=== PATIENT | male | born 1940 | race Caucasian/White ===

== ENCOUNTER 2016-03-17 22:32 | Outpatient (CLI) | payer MEDICARE, BC | END 2016-03-17 22:33 | disposition home or self-care (01) | DX: G47.33 Obstructive sleep apnea (adult) (pediatric) (principal); I48.1 Persistent atrial fibrillation; Z68.33 Body mass index [BMI] 33.0-33.9, adult ==

== ENCOUNTER 2016-04-05 14:07 | Outpatient (CLI) | payer MEDICARE, BC | END 2016-04-05 14:08 | disposition home or self-care (01) | DX: G47.33 Obstructive sleep apnea (adult) (pediatric) (principal) | CPT/HCPCS: 99213; G0463 ==

== ENCOUNTER 2016-05-16 15:09 | Outpatient (CLI) | payer MEDICARE, BC | END 2016-05-16 15:10 | disposition home or self-care (01) | DX: G47.33 Obstructive sleep apnea (adult) (pediatric) (principal) | CPT/HCPCS: 99213; G0463 ==

== ENCOUNTER 2016-05-30 19:40 | Outpatient (CLI) | payer MEDICARE, BC | END 2016-05-30 19:41 | disposition home or self-care (01) | DX: G47.33 Obstructive sleep apnea (adult) (pediatric) (principal); I48.91 Unspecified atrial fibrillation; Z68.33 Body mass index [BMI] 33.0-33.9, adult ==

== ENCOUNTER 2016-06-13 11:11 | Outpatient (CLI) | payer MEDICARE, BC | END 2016-06-13 11:12 | disposition home or self-care (01) | DX: E11.29 Type 2 diabetes mellitus with other diabetic kidney complication (principal); N18.9 Chronic kidney disease, unspecified ==

== ENCOUNTER 2016-06-20 14:11 | Outpatient (CLI) | payer MEDICARE, BC | END 2016-06-20 14:12 | disposition home or self-care (01) | DX: G47.33 Obstructive sleep apnea (adult) (pediatric) (principal); I48.91 Unspecified atrial fibrillation | CPT/HCPCS: 99214; G0463 ==

== ENCOUNTER 2016-07-20 14:37 | Outpatient (CLI) | payer MEDICARE, BC | END 2016-07-20 14:38 | disposition home or self-care (01) | DX: G47.33 Obstructive sleep apnea (adult) (pediatric) (principal) | CPT/HCPCS: 99214; G0463 ==

== ENCOUNTER 2016-09-19 10:14 | Outpatient (CLI) | payer MEDICARE, BC | END 2016-09-19 10:15 | disposition home or self-care (01) | DX: G47.33 Obstructive sleep apnea (adult) (pediatric) (principal) | CPT/HCPCS: 99214; G0463 ==

== ENCOUNTER 2016-10-24 10:26 | Outpatient (CLI) | payer MEDICARE, BC ==
[2016-10-24 18:54] LABS: ALBUMIN/GLOBULIN RATIO 1.3 (1.0-2.2); BILIRUBIN,TOTAL 0.4 mg/dL (0.2-1.0); CALCIUM 9.2 mg/dL (8.5-10.3); CREATININE 1.3 mg/dL (0.6-1.2); POTASSIUM 4.3 mmol/L (3.5-5.0); TOTAL PROTEIN 7.2 g/dL (6.7-8.2)
[2016-10-24 18:57] LABS: HEMOGLOBIN A1C 0.66 g/dL
== END 2016-10-24 10:27 | disposition home or self-care (01) ==
LOC: LAB.F 10:26
PROVIDERS: ATTEND Internal Medicine
DX: E11.29 Type 2 diabetes mellitus with other diabetic kidney complication (principal); E11.40 Type 2 diabetes mellitus with diabetic neuropathy, unspecified
CPT/HCPCS: 36415; 80053; 83036

== ENCOUNTER 2017-06-19 12:53 | Outpatient (CLI) | payer MEDICARE, BC ==
--- NOTE | 2017-06-19 13:47 | Ultrasound Report ---
AORTA SCREEN: 06/19/2017 CLINICAL INDICATION: Screening. TECHNIQUE: Real-time sonographic imaging was performed by the lodging house keeper through the aorta. Multiple sales account representative static images were saved for review. FINDINGS: The abdominal aorta is normal in caliber, measuring 2.8 cm proximally , 2.5 cm in the mid portion, and 1.8 cm distally. The iliacs are normal in caliber. No free fluid is present. IMPRESSION: NO EVIDENCE OF ABDOMINAL AORTIC ANEURYSM. TD: 06/19/2017 13:46 MTDD
== END 2017-06-19 12:54 | disposition home or self-care (01) ==
LOC: DI 12:53
PROVIDERS: ATTEND Internal Medicine
DX: Z13.6 Encounter for screening for cardiovascular disorders (principal)
CPT/HCPCS: 76706

== ENCOUNTER 2017-08-08 13:52 | Outpatient (CLI) | payer MEDICARE, BC | END 2017-08-08 13:53 | disposition home or self-care (01) | LOC: SC 13:52 | PROVIDERS: ATTEND Nurse Practitioner Family | DX: I10 Essential (primary) hypertension (principal); E11.9 Type 2 diabetes mellitus without complications | CPT/HCPCS: 99214; G0463; 99212 ==

== ENCOUNTER 2017-09-14 21:36 | Emergency (ER) | payer MEDICARE, BC ==
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
[2017-09-14] MEDS ORDERED: HYDROcod/ACETAM 5/325 MG TABLET PO STA ×2 (22:21→23:29)
--- NOTE | 2017-09-14 23:16 | XRAY Report ---
Procedure Date: 09/14/2017 Accession Number: [id number] / [id number] Procedure: XR - Femur 2V RT CPT Code: FULL RESULT: EXAM: RIGHT FEMUR RADIOGRAPHY EXAM DATE: 09/14/2017 10:27 PM. CLINICAL HISTORY: Injury, pain, tenderness. COMPARISON: XR HIP UNILAT MIN 2 VIEW 05/29/2006. TECHNIQUE: 2 views. FINDINGS: Bones: No acute fracture seen. Joints: No dislocation. Joints appear grossly intact as imaged. Soft Tissues: Vascular calcifications. Surgical clips in the pelvis. IMPRESSION: 1. No acute fracture or dislocation seen. RADIA
[2017-09-14 23:43] VITALS: BP 161/96
== END 2017-09-14 23:43 | disposition home or self-care (01) ==
LOC: ED 21:36
DX: S70.11XA Contusion of right thigh, initial encounter (principal); S97.112A Crushing injury of left great toe, initial encounter; S90.112A Contusion of left great toe without damage to nail, initial encounter; V03.00XA Pedestrian on foot injured in collision with car, pick-up truck or van in nontraffic accident, initial encounter; Y92.814 Boat as the place of occurrence of the external cause; E78.00 Pure hypercholesterolemia, unspecified; E11.9 Type 2 diabetes mellitus without complications; Z79.4 Long term (current) use of insulin
CPT/HCPCS: 73552; 99283; A9270

== ENCOUNTER 2017-10-25 10:14 | Outpatient (CLI) | payer MEDICARE, BC | END 2017-10-25 10:15 | disposition home or self-care (01) | LOC: SC 10:14 | PROVIDERS: ATTEND Nurse Practitioner Family | DX: G47.33 Obstructive sleep apnea (adult) (pediatric) (principal) | CPT/HCPCS: 99214; G0463; 99212 ==

== ENCOUNTER 2018-01-26 13:26 | Outpatient (CLI) | payer OTHER, MEDICARE, BC ==
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
== END 2018-01-26 13:27 | disposition home or self-care (01) ==
LOC: DI 13:26
PROVIDERS: ATTEND Family Medicine
DX: M47.9 Spondylosis, unspecified (principal)
CPT/HCPCS: 72100

== ENCOUNTER 2018-06-22 12:07 | Emergency (ER) | payer MEDICARE, BC ==
[2018-06-22 12:43] LABS: BASOPHILS % (AUTO) 0.3 %; EOSINOPHILS # (AUTO) 0.1 10^3/uL (0.0-0.7); EOSINOPHILS % (AUTO) 1.8 %; HGB - HEMOGLOBIN 11.7 g/dL (14.0-18.0); LYMPHOCYTES # (AUTO) 1.3 10^3/uL (1.5-3.5); MEAN CORPUSCULAR HEMOGLOBIN 31.9 pg (27.0-31.0); MEAN PLATELET VOLUME 9.6 fL (7.4-11.4); MONOCYTES # (AUTO) 1.4 10^3/uL (0.0-1.0); MONOCYTES % (AUTO) 22.9 %; NEUTROPHILS # (AUTO) 3.2 10^3/uL (1.5-6.6); PLT - PLATELET COUNT 154 10^3/uL (130-450); RED BLOOD COUNT 3.65 10^6/uL (4.70-6.10); WHITE BLOOD COUNT 6.1 x10^3/uL (4.8-10.8)
[2018-06-22] MEDS ORDERED: METOPROLOL 5 MG/5 ML VIAL IVP STA (12:53)
[2018-06-22] MEDS ORDERED: diphenhydrAMINE INJ 50 MG/ML VIAL IVP STA (12:53)
[2018-06-22 12:55] LABS: ALBUMIN 4.1 g/dL (3.2-5.5); ALBUMIN/GLOBULIN RATIO 1.3 (1.0-2.2); BILIRUBIN,TOTAL 0.4 mg/dL (0.2-1.0); CALCIUM 8.8 mg/dL (8.5-10.3); CREATININE 1.5 mg/dL (0.6-1.2); TOTAL PROTEIN 7.2 g/dL (6.7-8.2)
[2018-06-22] MEDS ORDERED: SODIUM CHLORIDE 0.9% 1,000 ML IV ONE (12:56)
--- NOTE | 2018-06-22 12:58 | ED Physician Documentation ---
History of Present Illness - Stated complaint Stated Complaint: CHEST/THROAT PX/VOMITING - Chief complaint Chief Complaint: Cardiac - History obtained from History obtained from: Patient, Family - History of Present Illness Timing: How many hours ago (3) Pain level max: 5 Pain level now: 0 - Additonal information Additional information: 78-year-old male presents to the emergency department with tightness in his chest that lasted approximately an hour today. Approximately 15-20 minutes after the pain started, he had vomiting that lasted approximately 30 minutes. Chest pain resolved shortly after that. Has never happened to him before. 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 No cardiac history in the past. States had a cardiac stress test 15 years ago that was reportedly normal. Does have a history of SVT. Nothing made the pain better or worse today. Did not take aspirin. Review of Systems Ten Systems: 10 systems reviewed and negative Constitutional: denies: Fever, Chills Ears: denies: Drainage/discharge Nose: denies: Rhinorrhea / runny nose, Congestion Throat: denies: Sore throat Respiratory: denies: Cough, Wheezing GI: reports: Nausea, Vomiting. denies: Abdominal Pain, Diarrhea, Hematemesis, Bloody / black stool : denies: Dysuria, Discharge Skin: denies: Rash Musculoskeletal: denies: Neck pain, Back pain Neurologic: denies: Headache PD PAST MEDICAL HISTORY - Past Medical History Past Medical History: Yes Cardiovascular: Hypertension, High cholesterol Endocrine/Autoimmune: Type 2 diabetes - Past Surgical History Past Surgical History: Yes - Present Medications Home Medications: Ambulatory Orders Medication Instructions Recorded Confirmed Atorvastatin Calcium 80 mg PO DAILY 04/26/14 04/26/14 Insulin Regular, Human [Novolin R] 04/26/14 04/26/14 Mecobal/Levomefolat Ca/B6 Phos 1 each PO DAILY 04/26/14 04/26/14 [Foltanx Tablet] Metformin HCl 1,000 mg PO BID 04/26/14 04/26/14 Cyclobenzaprine [Flexeril] 10 mg PO TID PRN #20 tablet 09/14/17 Hydrocodone/Acetaminophen 1 each PO Q6HR PRN #14 tablet 09/14/17 [Hydrocodone-Acetamin 5-325 mg] Insulin Glargine,Hum.rec.anlog 0 unit SUBQ 09/14/17 [Chance Gamez] - Allergies Allergies/Adverse Reactions: Allergies Allergy/AdvReac Type Severity Reaction Status Date / Time No Known Drug Allergies Allergy Verified 06/22/18 17:52 - Social History Does the pt smoke?: No Smoking Status: Never smoker Does the pt drink ETOH?: Yes Does the pt have substance abuse?: No - Immunizations Immunizations are current?: Yes - POLST Patient has POLST: No PD ED PE NORMAL - Vitals Vital signs reviewed: Yes - General General: Alert and oriented X 3, No acute distress, Well developed/nourished - HEENT HEENT: PERRL, Moist mucous membranes - Neck Neck: Supple, no meningeal sign - Cardiac Cardiac: RRR, Strong equal pulses - Respiratory Respiratory: No respiratory distress, Clear bilaterally - Abdomen Abdomen: Soft, Non tender, Non distended - Derm Derm: Warm and dry, No rash - Extremities Extremities: No edema, No calf tenderness / cord - Neuro Neuro: Alert and oriented X 3 - Psych Psych: Normal mood, Normal affect Results - Vitals Vitals: Vital Signs - 24 hr 06/22/18 06/22/18 06/22/18 12:20 12:44 13:23 Temperature 36.8 C Heart Rate 73 75 70 Respiratory 16 15 16 Rate Blood Pressure 187/81 H 187/81 H 156/66 H O2 Saturation 96 98 94 06/22/18 06/22/18 06/22/18 13:24 15:35 17:00 Temperature Heart Rate 54 L 61 59 L Respiratory 15 18 15 Rate Blood Pressure 152/66 H 159/73 H 154/70 H O2 Saturation 96 98 99 06/22/18 06/22/18 19:00 21:00 Temperature Heart Rate 66 64 Respiratory 17 16 Rate Blood Pressure 172/80 H 159/78 H O2 Saturation 100 98 Oxygen O2 Source Nasal cannula - EKG (time done) 1213 Rate: Rate (enter#) (78) Rhythm: NSR Wayne: Other (LAFB) Intervals: RBBB QRS: Normal Ischemia: Normal ST segments - Labs Labs: Laboratory Tests 06/22/18 06/22/18 06/22/18 12:20 12:37 12:37 WBC 6.1 RBC 3.65 L Hgb 11.7 L Hct 34.3 L MCV 94.0 MCH 31.9 H MCHC 34.0 RDW 14.0 Plt Count 154 MPV 9.6 Neut # (Auto) 3.2 Lymph # (Auto) 1.3 L Riley # (Auto) 1.4 H Eos # (Auto) 0.1 Baso # (Auto) 0.0 Absolute Nucleated RBC 0.00 Nucleated RBC % 0.0 PT INR APTT Sodium 140 Potassium 4.1 Chloride 104 Carbon Dioxide 28 Anion Gap 8.0 BUN 23 H Creatinine 1.5 H Estimated GFR (MDRD) 45 L Glucose 88 POC Whole Bld Glucose 100 Calcium 8.8 Total Bilirubin 0.4 AST 21 ALT 15 Alkaline Phosphatase 89 Troponin I Total Protein 7.2 Albumin 4.1 Globulin 3.1 Albumin/Globulin Ratio 1.3 Lipase 65 H 06/22/18 06/22/18 06/22/18 12:37 16:56 20:14 WBC RBC Hgb Hct MCV MCH MCHC RDW Plt Count MPV Neut # (Auto) Lymph # (Auto) Riley # (Auto) Eos # (Auto) Baso # (Auto) Absolute Nucleated RBC Nucleated RBC % PT 13.0 H INR 1.2 APTT Sodium Potassium Chloride Carbon Dioxide Anion Gap BUN Creatinine Estimated GFR (MDRD) Glucose POC Whole Bld Glucose Calcium Total Bilirubin AST ALT Alkaline Phosphatase Troponin I < 0.04 < 0.04 Total Protein Albumin Globulin Albumin/Globulin Ratio Lipase 06/22/18 20:14 WBC RBC Hgb Hct MCV MCH MCHC RDW Plt Count MPV Neut # (Auto) Lymph # (Auto) Riley # (Auto) Eos # (Auto) Baso # (Auto) Absolute Nucleated RBC Nucleated RBC % PT INR APTT 153.0 H* Sodium Potassium Chloride Carbon Dioxide Anion Gap BUN Creatinine Estimated GFR (MDRD) Glucose POC Whole Bld Glucose Calcium Total Bilirubin AST ALT Alkaline Phosphatase Troponin I Total Protein Albumin Globulin Albumin/Globulin Ratio Lipase - Rads (name of study) cxr Radiology: Prelim report reviewed, EMP read contemporaneously, See rad report (Negative ) CT chest Radiology: Prelim report reviewed, EMP read contemporaneously, See rad report (Very limited study due to technical malfunctions (no re-formations available) and patient difficulty with breath-holding. Enhanced axial images only are available at this time. 1. Grossly unremarkable aorta; no aneurysm or dissection. 2. Suboptimally opacified pulmonary arteries, grossly negative. 3. Normal overall heart size. Marked at least three-vessel coronary artery calcification. No pericardial effusion. No lymphadenopathy. 4. Unremarkable visualized abdomen. 5. Degenerative changes. Unremarkable visualized abdomen. ) PD MEDICAL DECISION MAKING - ED course Complexity details: reviewed results, re-evaluated patient, considered differential (No ST elevation KS, no aortic dissection, no PE, no tension pneumothorax, no aortic aneurysm), d/w patient, d/w family, d/w cardiology consultant ED course: 78-year-old male presents to the emergency department with chest pain and vomiting today. This resolved prior to arrival. Negative troponin x2. No acute EKG changes. Cardiac CT shows a limited study due to technical malfunctions. He does have marked at least three-vessel coronary artery calcification. I discussed the case with Dr. Avila at [facility] in [place] who recommend rule out KS and a cardiac stress test. Discussed the case with Dr. Harris, Hospitalist, who refuses to place the patient in observation status in the hospital. He states that the patient can stay in the emergency department for his rule out and follow-up next week for his cardiac stress test. I stressed to him what the histologic technician told told me and he still refuses the patient. Therefore the patient will be kept in the emergency department for a cardiac rule out. If his last troponin is negative after 12-14 hours from his last symptoms, will be started on aspirin at home and follow-up with his doctor Monday or Monday for a cardiac stress test. Patient was also told to limit his activity and to return immediately if he develops recurrent chest pain. Patient will be signed out to Dr. Graves awaiting the remainder of the tests. Departure - Departure Clinical Impression: Coronary artery disease Qualifiers: Coronary Disease-Associated Artery/Lesion type: poarch artery [place] vs. transplanted heart: poarch heart Associated angina: with unstable angina Qualified Code(s): I25.110 - Atherosclerotic heart disease of po[place] coronary artery with unstable angina pectoris Chest pain Qualifiers: Chest pain type: unspecified Qualified Code(s): R07.9 - Chest pain, unspecified Condition: Stable
[2018-06-22] MEDS ORDERED: IOVERSOL 320 100 ML VIAL IVP ONE ×2 (13:15→15:25)
--- NOTE | 2018-06-22 13:19 | XRAY Report ---
Reason: chest pain Procedure Date: 06/22/2018 Accession Number: [id number] / [id number] Procedure: XR - Chest 1 View X-Ray CPT Code: 98547 FULL RESULT: EXAM: CHEST RADIOGRAPHY EXAM DATE: 06/22/2018 01:07 PM. CLINICAL HISTORY: Chest pain. COMPARISON: CHEST 2 VIEW PA/LAT 04/26/2014 2:28 PM. TECHNIQUE: 1 view. FINDINGS: Lungs/Pleura: No focal opacities evident. No pleural effusion. No pneumothorax. Mediastinum: Heart size is normal for AP technique. Mild aortic arch atherosclerotic calcification. Other: None. IMPRESSION: 1. Negative single view chest RADIA
--- NOTE | 2018-06-22 17:23 | CT Report ---
Reason: chest pain Procedure Date: 06/22/2018 Accession Number: [id number] / [id number] Procedure: CT - ANGIO CHEST W/WO CPT Code: FULL RESULT: EXAM: CTA CHEST EXAM DATE: 06/22/2018 04:07 PM. CLINICAL HISTORY: Chest pain.. COMPARISON: CHEST ANGIO 06/22/2018 2:38 PM CHEST 1 VIEW 06/22/2018 12:52 PM. TECHNIQUE: Prior to and following intravenous administration of 100 cc Optiray 320, contiguous axial images were acquired through the chest. Due to technical malfunction, standard reconstructed images other than axial images were not provided, however axial, sagittal, and 3D MIP reconstructions of the chest were performed using the original axial data set and reviewed on the PACS workstation. Lung window reformats could not be obtained. Calcium scoring could not be obtained. In accordance with CT protocol optimization, one or more of the following dose reduction techniques were utilized for this exam: automated exposure control, adjustment of mA and/or KV based on patient size, or use of iterative reconstructive technique. FINDINGS: Vascular Structures: No aortic aneurysm or dissection. Common origin of the brachiocephalic and left common carotid artery, normal variant. Mild scattered atherosclerotic aortic calcifications. No hemodynamically significant stenosis. Study has not optimized for evaluation of the pulmonary arteries. No large central pulmonary embolism is evident. Lungs/Pleura: Indeterminat 3 monitor left apical nodule (4/150). Areas of mild bilateral lower lobe groundglass opacity may be hypoventilatory, versus infiltrate. Otherwise no focal pulmonary consolidation, pleural effusion, or pneumothorax. Airways appear patent. Mediastinum: Borderline mild cardiomegaly. Extensive three-vessel coronary artery calcifications. No lymphadenopathy. Upper Abdomen: Unremarkable. Other: None. IMPRESSION: 1. No aortic aneurysm or dissection. 2. Extensive three-vessel coronary artery calcifications. 3. Mild bilateral lower lobe groundglass opacities, hypoventilatory versus infiltrate. 4. Indeterminate 3 mm left apical nodule. Consider 12 month follow-up chest CT to confirm stability. 5. Other findings and technical limitations as noted above. RADIA
[2018-06-22] MEDS ORDERED: HEPARIN 25000UNITS/500ML (D5W) 25,000 UNIT/500 ML BAG IV STA (18:16)
[2018-06-22 20:31] LABS: INR 1.2 (0.8-1.2)
[2018-06-23 00:30] VITALS: BP 162/86
== END 2018-06-23 00:29 | disposition home or self-care (01) ==
LOC: ED 12:07
DX: I25.110 Atherosclerotic heart disease of native coronary artery with unstable angina pectoris (principal); R07.9 Chest pain, unspecified; I45.2 Bifascicular block; I10 Essential (primary) hypertension; E11.9 Type 2 diabetes mellitus without complications; Z79.4 Long term (current) use of insulin; E78.00 Pure hypercholesterolemia, unspecified
CPT/HCPCS: 36415; 71045; 71275; 80053; 83690; 84484; 85025; 85610; 85730; 93005; 96361; 96365; 96375; 96376; 99284; J1200; Q9967

== ENCOUNTER 2018-10-11 09:35 | Outpatient (CLI) | payer MEDICARE, BC ==
[2018-10-11] MEDS ORDERED: ALBUTEROL NEB 2.5 MG/3 ML INH SCH (10:30)
== END 2018-10-11 09:36 | disposition home or self-care (01) ==
LOC: RT 09:35
PROVIDERS: ATTEND Internal Medicine
DX: R06.09 Other forms of dyspnea (principal)
CPT/HCPCS: 94010; 94729

== ENCOUNTER 2018-11-06 10:53 | Outpatient (CLI) | payer MEDICARE, BC ==
[2018-11-06 12:32] VITALS: BP 130/58
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
== END 2018-11-06 10:54 | disposition home or self-care (01) ==
LOC: SC 10:53
PROVIDERS: ATTEND Nurse Practitioner Family
DX: G47.33 Obstructive sleep apnea (adult) (pediatric) (principal)
CPT/HCPCS: 99215; G0463; 99212

== ENCOUNTER 2019-01-08 13:08 | Outpatient (CLI) | payer MEDICARE, BC ==
[2019-01-08 14:21] VITALS: BP 140/58
--- NOTE | 2019-01-08 14:21 | SLEEP CARE CONSULTATION ---
Information from patient questionnaire entered by Katey Rosado. I have reviewed and concur with the information entered by Katey Rosado. This document represents the service I personally performed and the decisions made by me, Jena Lima, RN, MSN, FASHION DESIGNER. History of Present Illness Previous diagnosis: Severe, Obstructive Sleep Apnea-Hypopnea Syndrome AHI: 34.9 Reason for CPAP/BiPAP follow up: other (2 month) Equipment type: CPAP Equipment obtained from: [facility] (problems getting equipment - ready to transfer.) Mask style: Full face Mask brand: Resmed (Air Touch) Backup mask available: Yes Last cushion change: 1 month ago Prior sleep studies: Yes HPI additional information: He tried the strap covers and skin irritation is less where they cover. He finally obtained updated supplies with much persistence and difficulty. Cleaning equipment is doing better. CPAP Compliance Data - Data Reviewed with Patient Average duration of nightly device use: 5h 55m Compliance rate %: 78.3 Current pressure setting (cmH2O): 9 Humidity setting: off Heated hose settin Subjective Missed days of use due to: reports: illness Patient concerns: reports: mask discomfort (below nose with nasal mask and from headgear straps from full face ), nasal congestion (intermittent with cold ), dry mouth, nose, throat (humidifier not working since travel. lid will not close and unable to change settings. ), epistaxis (none for a month. ), other (skin irritation). denies: aerophagia, air blowing in eyes, mask leak noise, condensation in mask/hose Observed to snore while using device: No Current pressure setting perceived as: comfortable On therapy, patient: reports: sleeping better, awakening more refreshed, being more awake and alert during the day, more rested overall. denies: drowsiness while driving Initial [place] Sleepiness Scale score: 8 Current [place] Sleepiness Scale score: 2 Allergies and Home Medications Known drug allergies: Yes (iodine) Home medication list reviewed: Yes Allergy and home medication list: metoprolol succinate 25mg daily metformin 1000mg bid Humalog insulin Glargine insulin atorvastatin 80mg daily Brillinta unknown dose daily Review of Systems Review of systems same as previous: Yes Physical Exam Blood Pressure: 140/58 Cuff size: long Heart Rate: 65 O2 Saturation: 97 Height: 5 ft 7 in Weight: 211 lb 9.6 oz Body Mass Index: 33.1 BMI Classification: Obesity Class 1 Impression and Plan 1. Obstructive Sleep Apnea-Hypopnea Syndrome, severe, with good treatment compliance and good apnea control. On CPAP therapy, the patient has better sleep quality and is more rested overall. For supply concerns, he has improved his compliance and is ready to transfer. Thus I will make a DWO and have my [facility] coordinator inform him of his DME options. At that time he can have his humidifier checked for malfunction as the lid is not closing nor is he able to change settings since travel. He took it on the plane with no incident known. To reduce skin irritation, he is to put a cloth barrier on rest of headgear until he can contact [employer] for a larger / thicker strap barrier. Another pamph let given for contact information. He is advised to speak to the barrel dedenting machine operator of his needs so can be addressed correctly. To reduce nasal dryness until his humidifier is fixed, I gave him a sample of saline nasal spray to use prior to CPAP for moisture and can be used through out the day as needed. Since he is on a blood thinner, I advised patient of the importance of keeping his nose moist to Patient's apnea severity and rationale for treatment to reduce apnea, improve sleep quality and reduce cardiovascular and cerebrovascular events was reviewed. I also reviewed the benefit of consistent device use of CPAP for his cardiac disease, diabetes. * Continue CPAP pressure at 9cmH2O * Transfer to new DME * Saline nasal spray as directed * Check humifier for malfunction. * Notify me if snoring with mask or feeling that the pressure is too much or too little * Attempt to lose weight * Return for follow up in 1 year , or sooner if concerns arise I spent 100% of this 35 minute visit face to face with the patient with greater than 50% of this was spent time counseling the patient and coordination of care.
== END 2019-01-08 13:09 | disposition home or self-care (01) ==
LOC: SC 13:08
PROVIDERS: ATTEND Nurse Practitioner Family
DX: G47.33 Obstructive sleep apnea (adult) (pediatric) (principal); E66.9 Obesity, unspecified; Z68.33 Body mass index [BMI] 33.0-33.9, adult
CPT/HCPCS: 99214; G0463; 99212

== ENCOUNTER 2019-12-25 13:13 | Outpatient (CLI) | payer MEDICARE, BC ==
--- NOTE | 2019-12-25 13:53 | XRAY Report ---
PROCEDURE: Lumbar Spine 2 View INDICATIONS: CHRONIC LOW BACK PAIN TECHNIQUE: 3 views of the lumbar spine were acquired. COMPARISON: None. FINDINGS: Bones: 5 [id number] vertebrae are present. There is normal bony alignment. Degenerative endpl ate changes and bilateral facet arthrosis throughout lumbar spine is seen more prominent at L4-5 and L5-S1 levels. No vertebral body compression fractures. No suspicious bony lesions. Soft tissues: Overlying bowel gas pattern is normal. No suspicious soft tissue calcifications. IMPRESSION: Degenerative disc disease throughout lumbar spine more prominent at L4-5 and L5-S1 level s. No acute fracture or dislocation. Reviewed by: Getachew Peres MD on 12/25/2019 1:52 PM PDT Approved by: Getachew Peres MD on 12/25/2019 1:52 PM PDT Station ID: [id number]
== END 2019-12-25 13:14 | disposition home or self-care (01) ==
LOC: DI 13:13
PROVIDERS: ATTEND Internal Medicine
DX: M51.37 Other intervertebral disc degeneration, lumbosacral region (principal)
CPT/HCPCS: 72100

== ENCOUNTER 2020-07-20 14:19 | Outpatient (CLI) | payer MEDICARE, OTHER ==
--- NOTE | 2020-07-20 15:00 | XRAY Report ---
PROCEDURE: Chest 2 View X-Ray INDICATIONS: DYSPNEA TECHNIQUE: 2 view(s) of the chest. COMPARISON: None. FINDINGS: Surgical changes and devices: None. Lungs and pleura: No pleural effusions or pneumothorax. Lungs are clear. Mediastinum: Mediastinal contours are normal. Heart size is normal. Bones and chest wall: No suspicious bony abnormalities. Soft tissues appear unremarkable. IMPRESSION: Normal for age, source of current symptoms is not seen. Note is made that the lung volum es are relatively large but this is not associated with definite emphysematous change and may simply represent an aggressive inspiratory effort. Reviewed by: Gagan Arthur MD on 07/20/2020 2:59 PM PDT Approved by: Gagan Arthur MD on 07/20/2020 2:59 PM PDT Station ID: [id number]
== END 2020-07-20 14:20 | disposition home or self-care (01) ==
LOC: DI 14:19
PROVIDERS: ATTEND Internal Medicine
DX: R06.09 Other forms of dyspnea (principal)

== ENCOUNTER 2021-01-26 14:59 | Outpatient (CLI) | payer MEDICARE, OTHER ==
[2021-01-26 16:14] VITALS: BP 146/73
--- NOTE | 2021-01-26 16:14 | SLEEP CARE CONSULTATION ---
Information from patient questionnaire entered by Junior Day MA. I have reviewed and concur with the information entered by Junior Day MA. This document represents the service I personally performed and the decisions made by , Olivia Jonas ARNP. History of Present Illness Service Date and Time: 01/26/2021 1459 Previous diagnosis: Severe, Obstructive Sleep Apnea-Hypopnea Syndrome AHI: 34.9 Reason for follow up: annual (last seen 2019) Equipment type: CPAP Equipment obtained from: [facility] (getting supplies as needed) Mask style: Full face Backup mask available: Yes (old mask) Last cushion change: often Prior sleep studies: Yes (AHI 34.9) Year and Where: 2018 [facility] additional information: SHANNON VAZQUEZ was diagnosed to have severe, AHI 34.9, obstructive sleep apnea- hypopnea syndrome and returned today for CPAP therapy annual follow-up. Sleep Study - Results Type of Sleep Study: Polysomnography Prior sleep studies: Yes Year and Where: [facility] CPAP Compliance Data - Data Reviewed with Patient Average duration of nightly device use: 5 hours 9 minutes Compliance rate %: 26.7 (180 days) Current pressure setting (cmH2O): 9 Humidity settin Heated hose settin Average residual AHI: 1.7 Average large leak: 6 seconds Compliance data discussion: Patient stopped using his device mostly in November 2020 due to the recall on his Dreamstation. Subjective Patient concerns: reports: mask discomfort, mask leak noise, dry mouth, nose, throat. denies: aerophagia, air blowing in eyes, nasal congestion, epistaxis, other Observed to snore while using device: No Current pressure setting perceived as: comfortable On therapy, patient: reports: sleeping better, awakening more refreshed, being more awake and alert during the day, more rested overall. denies: drowsiness while driving Initial [place] Sleepiness Scale score: 8 Allergies and Home Medications Home medication list reviewed: Yes (medications for heart after GA, unsure of names, no list with him) Review of Systems Review of systems same as previous: No (GA 2 years ago, stents placed) Physical Exam Vital signs obtained and entered by: JESUS Day Blood Pressure: 146/73 Cuff size: wrist Heart Rate: 60 O2 Saturation: 96 Height: 5 ft 7 in Weight: 199 lb Body Mass Index: 31.1 BMI Classification: Obese Impression and Plan 1. Obstructive Sleep Apnea-Hypopnea Syndrome, severe, with poor treatment compliance and good apnea control. On CPAP therapy, the patient has better sleep quality and is more rested overall. Patient has a Dreamstation CPAP. He stopped using it after he heard about the recall. He had been using a [employer] device to clean his machine. He states he registered with them several months ago. Patient denies any black particles seen in machine or hoses, any unusual odors coming from device. Patient has not experienced any physical symptoms such as upper airway irritation, headache, skin or eye irritation, asthma, nausea/vomiting, difficulty breathing or chest pain. I discussed with the patient that if he is not able to sleep due to waking up choking, gasping for air or other respiratory distress that they may decide to continue using it until it is either replaced or repaired. But he may stop using due to health risk concerns. Patient states he will not use his machine until it is replaced with a device not on the [facility]. Patient is eligible around the end of March 2021 for a new device. If [employer] has not replaced his device by then he will give us a call for a prescription to replace his device. Patient voiced understanding and agreement with plan. Patient's apnea severity and rationale for treatment to reduce apnea, improve sleep quality and reduce cardiovascular and cerebrovascular events was reviewed. I also reviewed the benefit of consistent device use of CPAP for cardiac disease and diabetes. Patient was encouraged to lose weight for their overall health and to reduce apneas. * Continue auto CPAP pressure at 9.0 cmH2O * Notify me if snoring with mask or feeling that the pressure is too much or too little * Attempt to lose weight * Call this office if any problems using CPAP * Return for follow up in 1 year, or sooner if concerns arise Counseling Topics: Spare mask, Weight loss health impact Visit Type: In Office Time Spent with Patient (minutes): 24 Provider Statement: I spent 100% of the Face to Face Visit with the patient with greater than 50% spent counseling the patient and coordination of care.
== END 2021-01-26 15:00 | disposition home or self-care (01) ==
LOC: SC 14:59
PROVIDERS: ATTEND Nurse Practitioner Family
DX: G47.33 Obstructive sleep apnea (adult) (pediatric) (principal); E66.9 Obesity, unspecified; Z68.31 Body mass index [BMI] 31.0-31.9, adult
CPT/HCPCS: 99213; G0463; 99212

== ENCOUNTER 2021-08-04 07:56 | Outpatient (CLI) | payer MEDICARE, OTHER ==
[2021-08-04 14:24] LABS: BASOPHILS % (AUTO) 0.4 %; EOSINOPHILS # (AUTO) 0.3 10^3/uL (0.0-0.7); EOSINOPHILS % (AUTO) 4.5 %; HCT - HEMATOCRIT 32.3 % (42.0-52.0); HGB - HEMOGLOBIN 9.9 g/dL (14.0-18.0); LYMPHOCYTES # (AUTO) 1.2 10^3/uL (1.5-3.5); LYMPHOCYTES % (AUTO) 22.2 %; MEAN CORPUSCULAR HEMOGLOBIN 30.6 pg (27.0-31.0); MEAN CORPUSCULAR HGB CONC 30.7 g/dL (32.0-36.0); MEAN CORPUSCULAR VOLUME 99.7 fL (80.0-94.0); MEAN PLATELET VOLUME 13.5 fL (7.4-11.4); MONOCYTES # (AUTO) 1.3 10^3/uL (0.0-1.0); MONOCYTES % (AUTO) 23.3 %; NEUTROPHILS # (AUTO) 2.7 10^3/uL (1.5-6.6); NEUTROPHILS % (AUTO) 48.9 %; PLT - PLATELET COUNT 112 10^3/uL (130-450); RED BLOOD COUNT 3.24 10^6/uL (4.70-6.10); RED CELL DISTRIBUTION WIDTH 16.6 % (12.0-15.0); WHITE BLOOD COUNT 5.5 x10^3/uL (4.8-10.8)
[2021-08-04 14:56] LABS: ALBUMIN 3.6 g/dL (3.2-5.5); ALBUMIN/GLOBULIN RATIO 0.9 (1.0-2.2); ALKALINE PHOSPHATASE 128 IU/L (42-121); ALT ALANINE AMINOTRANSFERASE 18 IU/L (10-60); AST ASPARTATE AMINOTRANSFERASE 20 IU/L (10-42); BILIRUBIN,TOTAL 0.4 mg/dL (0.2-1.0); BUN - BLOOD UREA NITROGEN 37 mg/dL (6-20); CALCIUM 9.2 mg/dL (8.5-10.3); CARBON DIOXIDE - CO2 24 mmol/L (21-32); CHLORIDE 108 mmol/L (101-111); CHOLESTEROL 121 mg/dL; CREATININE 1.7 mg/dL (0.6-1.2); GFR - MDRD 39 (>89); GLUCOSE 111 mg/dL (70-100); HDL CHOLESTEROL 41 mg/dL; LDL CHOLESTEROL,CALCULATED 69 mg/dL; LDL/HDL RATIO 1.7 (<3.6); POTASSIUM 4.7 mmol/L (3.5-5.0); SODIUM 142 mmol/L (135-145); TOTAL PROTEIN 7.5 g/dL (6.7-8.2); TRIGLYCERIDES 53 mg/dL; VLDL CHOLESTEROL 11 mg/dL
[2021-08-04 20:45] LABS: ESTIMATED AVERAGE GLUCOSE 180 mg/dL (70-100); HEMOGLOBIN A1c% 7.9 % (4.27-6.07)
== END 2021-08-04 07:57 | disposition home or self-care (01) ==
LOC: LAB.S 07:56
PROVIDERS: ATTEND Physician Assistant
DX: R63.4 Abnormal weight loss (principal); E11.9 Type 2 diabetes mellitus without complications; E78.5 Hyperlipidemia, unspecified
CPT/HCPCS: 36415; 80053; 80061; 83036; 83721; 85025

== ENCOUNTER 2021-09-06 17:13 | Emergency (ER) | payer MEDICARE, OTHER ==
--- OUTSIDE RECORDS SUMMARY | 2021-09-06 17:39 | EXTERNAL MEDICAL SUMMARY RPT | Continuity of Care Document ---
:1940 Author Organization [place] Address [address] [phone] Phone Allergies No information. Encounters No information. Functional Status No information. Immunizations No information. Medications date description facility +0000 [id number] phos All Problems No information. Procedures No information. Results/Labs No information. Social History date description facility +0000 Former smoker All Vital Signs date measurement value units +0000 BMI BMI 27.82 kg/m2 +0000 BP_diastolic BP_diastolic 64 mm[H g] +0000 BP_systolic BP_systolic 136 mm[Hg] +0000 heart_rate heart_rate 55 /min +0000 height_metric height_metric 170.18 cm +0000 height_standard height_standard 67 in +0000 respiration_rate respiration_rate 16 /min +0000 temperature_metric temperature_metric 36.44 C +0000 temperature_standard temperature_standard 9 7.6 F +0000 weight_metric weight_metric 80.29 kg +0000 weight_standard weight_standard 177 lb
[2021-09-06] MEDS ORDERED: OXYMETAZOLINE HCL 100 SPRAYS BOTTLE NAS STA (17:41)
[2021-09-06 17:59] LABS: HCT - HEMATOCRIT 29.9 % (42.0-52.0); HGB - HEMOGLOBIN 9.3 g/dL (14.0-18.0)
[2021-09-06] MEDS ORDERED: TETANUS/DIPHTHERIA/PERTUSSIS 0.5 ML SYRINGE IM ONE (18:15)
--- NOTE | 2021-09-06 18:16 | ED Physician Documentation ---
History of Present Illness - Stated complaint Stated Complaint: NOSE BLEED - Chief complaint Chief Complaint: General - History obtained from History obtained from: Patient - Additonal information Additional information: 81-year-old gentleman on Plavix for history of coronary disease with stenting developed a spontaneous nosebleed about an hour ago. On my evaluation it has already stopped. It was from the right side. He has a history of anemia. Hemoglobin today is close to albeit slightly below his baseline. And ancillary complaint he cut his left index finger a few days ago at home and would like a tetanus shot. Review of Systems Constitutional: denies: Fever, Chills Nose: reports: Epistaxis. denies: Rhinorrhea / runny nose Throat: denies: Sore throat Cardiac: denies: Chest pain / pressure, Palpitations Respiratory: denies: Dyspnea, Cough PD PAST MEDICAL HISTORY - Past Medical History Cardiovascular: Hypertension, High cholesterol Endocrine/Autoimmune: Type 2 diabetes - Past Surgical History Past Surgical History: Yes - Present Medications Home Medications: Ambulatory Orders Medication Instructions Recorded Confirmed Atorvastatin Calcium 80 mg PO DAILY 04/26/14 09/06/21 Insulin Regular, Human [Novolin R] 12 units SQ TID 04/26/14 09/06/21 Metformin HCl 1,000 mg PO DAILY 04/26/14 09/06/21 Acetaminophen [Tylenol] 1 tab PO DAILY PRN 07/27/21 09/06/21 Furosemide [Lasix] 1 tab PO DAILY PRN 07/27/21 09/06/21 Losartan [Cozaar] 100 mg PO DAILY 07/27/21 09/06/21 Multivitamin 1 tab PO PRN 07/27/21 09/06/21 Potassium Citrate [Potassium 2 tab PO BID PRN 07/27/21 09/06/21 Citrate ER] Sertraline [Zoloft] 100 mg PO DAILY 07/27/21 09/06/21 Clopidogrel [Plavix] 90 mg PO DAILY 09/06/21 09/06/21 Insulin Glargine,Hum.rec.anlog 28 units SUBQ DAILY PM 09/06/21 09/06/21 [Touivan Solostar] Metoprolol Succinate [Toprol Xl] 25 mg PO DAILY 09/06/21 09/06/21 - Allergies Allergies/Adverse Reactions: Allergies Allergy/AdvReac Type Severity Reaction Status Date / Time No Known Drug Allergies Allergy Verified 07/27/21 13:57 - Social History Does the pt smoke?: No Smoking Status: Former smoker Does the pt drink ETOH?: Yes Does the pt have substance abuse?: No - Immunizations Immunizations are current?: Yes - POLST Patient has POLST: No PD ED PE NORMAL - Vitals Vital signs reviewed: Yes - General General: Alert and oriented X 3, No acute distress - HEENT HEENT: PERRL, EOMI, Other (No bleeding from the right nares, no obvious spot to cauterize. No clots.) - Neck Neck: Supple, no meningeal sign, No bony TTP - Neuro Neuro: Alert and oriented X 3, Normal speech Results - Vitals Vitals: Vital Signs - 24 hr 09/06/21 17:25 Heart Rate 74 Respiratory 16 Rate Blood Pressure 168/68 H O2 Saturation 98 Oxygen O2 Source Room air - Labs Labs: Laboratory Tests 09/06/21 17:44 Hgb 9.3 L Hct 29.9 L PD MEDICAL DECISION MAKING - ED course ED course: 81-year-old gentleman with resolved epistaxis. Departure - Departure Disposition: 01 Home, Self Care Clinical Impression: Epistaxis Condition: Good Record reviewed to determine appropriate education?: Yes Instructions: ED Nosebleed Comments: Note for your records that you did receive a tetanus shot today. This should be good for 10 years. Return if worsening.
[2021-09-06 18:52] VITALS: BP 159/61
== END 2021-09-06 18:52 | disposition home or self-care (01) ==
LOC: ED 17:13
DX: R04.0 Epistaxis (principal); Z23 Encounter for immunization
CPT/HCPCS: 36415; 85014; 85018; 90471; 90715; 99282; 99283; A9270